=== PATIENT | female | born 1990 | race Caucasian/White ===

== ENCOUNTER 2019-04-10 12:58 | Observation (INO) | payer MEDICAID ==
[~2019-04-10] VITALS: Ht 154.9 cm; Wt 57.2 kg
[2019-04-10] MEDS ORDERED: BETAMET ACET/BETAMET NA PH 30 MG/5 ML VIAL IM ONE ×2 (14:45→15:13)
== END 2019-04-10 15:15 | disposition home or self-care (01) ==
LOC: SPU 12:58
PROVIDERS: ADMIT Obstetrics & Gynecology; ATTEND Obstetrics & Gynecology
DX: O62.9 Abnormality of forces of labor, unspecified (principal); Z3A.35 35 weeks gestation of pregnancy
CPT/HCPCS: 96372; G0378; J0702; 81002-TC